=== PATIENT | male | born 1960 | race Caucasian/White ===

== ENCOUNTER 2020-05-23 10:26 | Outpatient (REF) | payer BC, SELFPAY ==
[2020-05-23 12:05] LABS: PSA,Total (Free>4and<10) 4.19 ng/mL (0.00-4.00)
[2020-05-24 12:12] LABS: Free Prostate Spec Ag 0.3 ng/mL; Percent Free Prostate Spec Ag 12 % (calc) (>25)
[2020-05-27 11:22] LABS: Prostate Specific Ag Total 2.5 ng/mL (< OR = 4.0)
== END 2020-05-23 10:27 | disposition home or self-care (01) ==
LOC: HO.LAB 10:26
PROVIDERS: PCP Family Medicine; Visit Provider Urology
DX: R97.20 Elevated prostate specific antigen [PSA] (principal); Z80.42 Family history of malignant neoplasm of prostate
CPT/HCPCS: 36415; 84153; 84154

== ENCOUNTER → 2020-05-26 08:26 | Outpatient (BNVA) | payer BC, SELFPAY | PROVIDERS: PCP Family Medicine; Referring Provider Family Medicine; Visit Provider Urology | DX: Z76.89 Persons encountering health services in other specified circumstances (principal) ==

== ENCOUNTER 2020-08-29 11:35 | Outpatient (REF) | payer BC, SELFPAY ==
[2020-08-29 13:18] LABS: PSA,Total (Free>4and<10) 5.55 ng/mL (0.00-4.00)
[2020-08-30 11:12] LABS: Free Prostate Spec Ag 0.5 ng/mL; Percent Free Prostate Spec Ag 14 % (calc) (>25); Prostate Specific Ag Total 3.5 ng/mL (< OR = 4.0)
== END 2020-08-29 11:36 | disposition home or self-care (01) ==
LOC: HO.LAB 11:35
PROVIDERS: PCP Family Medicine; Visit Provider Urology
DX: N13.8 Other obstructive and reflux uropathy (principal); N40.1 Benign prostatic hyperplasia with lower urinary tract symptoms; R97.20 Elevated prostate specific antigen [PSA]; Z12.5 Encounter for screening for malignant neoplasm of prostate
CPT/HCPCS: 36415; 84153; 84154

== ENCOUNTER → 2020-09-07 12:38 | Outpatient (BNVA) | payer BC, SELFPAY | PROVIDERS: PCP Family Medicine; Visit Provider Urology | DX: N52.9 Male erectile dysfunction, unspecified (principal); R97.20 Elevated prostate specific antigen [PSA] | CPT/HCPCS: 81002 ==

== ENCOUNTER 2021-01-07 08:08 | Outpatient (REF) | payer BC, SELFPAY ==
[2021-01-07 10:28] LABS: PSA,Total (Free>4and<10) 5.97 ng/mL (0.00-4.00)
[2021-01-09 13:02] LABS: Free Prostate Spec Ag 0.3 ng/mL; Percent Free Prostate Spec Ag 9 % (calc) (>25); Prostate Specific Ag Total 3.5 ng/mL (< OR = 4.0)
== END 2021-01-07 08:09 | disposition home or self-care (01) ==
LOC: HO.LAB 08:08
PROVIDERS: PCP Family Medicine; Visit Provider Urology
DX: N40.1 Benign prostatic hyperplasia with lower urinary tract symptoms (principal); N13.8 Other obstructive and reflux uropathy; R97.20 Elevated prostate specific antigen [PSA]
CPT/HCPCS: 36415; 84153; 84154

== ENCOUNTER → 2021-03-07 08:25 | Outpatient (BNVA) | payer BC, SELFPAY | PROVIDERS: PCP Family Medicine; Visit Provider Urology ==

== ENCOUNTER 2021-07-06 09:22 | Outpatient (REF) | payer BC, SELFPAY ==
--- NOTE | ~2021-07-06 | XR_ITS ---
EXAMINATION: XR ANKLE, RIGHT CLINICAL INFORMATION: Pain. COMPARISON: Right ankle 04/13/2013. TECHNIQUE: AP, oblique and lateral views of the right ankle. FINDINGS: There is moderate lateral malleolar soft tissue swelling. No visible acute fracture, dislocation or subluxation seen. The ankle mortise and subtalar joints are normal. There is a small retrocalcaneal enthesophyte. XR/XR ankle RT min 3V IMPRESSION: Moderate lateral malleolar soft tissue swelling. No visible acute fracture or dislocation seen.
== END 2021-07-06 09:23 | disposition home or self-care (01) ==
LOC: HO.HOSX 09:22
PROVIDERS: PCP Family Medicine; Visit Provider Orthopaedic Surgery
DX: S86.019D Strain of unspecified Achilles tendon, subsequent encounter (principal); X58.XXXD Exposure to other specified factors, subsequent encounter
CPT/HCPCS: 73610

== ENCOUNTER 2021-07-14 10:20 | Outpatient (REF) | payer BC, SELFPAY ==
--- NOTE | ~2021-07-14 | MR_ITS ---
EXAMINATION: MRI ANKLE WITHOUT CONTRAST, RIGHT CLINICAL INFORMATION: Strain of the Achilles tendon. Patient reports history of complete rupture 8 years ago with subsequent surgery. Lump, pain, and swelling x3 weeks. No injury. COMPARISON: None TECHNIQUE: Multiplanar MR imaging was obtained through the right ankle without contrast on a 1.5 Kaley magnet. FINDINGS: ACHILLES TENDON: Numerous punctate foci of micrometallic susceptibility artifact at the superficial margin of the Achilles tendon along its mid substance are most consistent with prior surgery. The morphology of the tendon is abnormal with cystic expansion and convexity of the anterior margin. The Achilles measures up to 1.6 cm in diameter at its mid substance, centered 6 cm from the insertion. There is complex intraligamentous cystic exchange trouble shooter a distance of 5.5 cm involving up to 23% of the approximately one-quarter of the tendon cross-section. This cyst penetrates the superficial, posterior fibers of the Achilles tendon over an area measuring 1.3 x 0.5 cm with extension of cystic material into the more superficial soft tissue plane at the pre-Achilles bursa. Surrounding soft tissues are edematous. Aside from the region of cystic delamination, the Achilles tendon otherwise appears intact. OTHER TENDONS: There is a complex tear of the peroneus brevis extending from the level of the lateral malleolus through the anterior process of the calcaneus just distal to the peroneal tubercle. This tear measures roughly 4.5 cm in length and involves at least one-half the tendon cross-section. The peroneus longus is intact without significant tenosynovitis. Incidental note is made of a small peroneus quartus. Extensor tendons and medial flexor tendons are intact. LIGAMENTS: Anterior talofibular ligament is absent, most consistent with a chronic tear with resorption. There is slight thickening of the calcaneofibular ligament which suggests a prior sprain. No tears. Posterior talofibular ligament is intact. Osseous prominence at the anterior tibiofibular ligament attachments may correspond to a prior sprain. No appreciable tears of the distal tibiofibular ligaments. The deltoid ligament is intact. Normal spring ligament. BONE AND ARTICULAR CARTILAGE: Talocrural joint appears well preserved. Small marginal osteophytes are identified. No talar osteochondral injuries. Subtalar and Chopart joints are unremarkable. JOINT FLUID AND SOFT TISSUES: No joint effusions. Mild edema signal in the subcutaneous fat at the ankle, most pronounced posteriorly. As noted above, there is fluid in the pre-Achilles bursa extending from the substance of the tendon. PLANTAR FASCIA: Normal. SINUS TARSI AND TARSAL TUNNEL: Normal. MR/MR ankle RT wo con IMPRESSION: 1. Chronic findings of prior Achilles tendon surgery with cystic expansion and delamination of the tendon fibers as well as superficial penetration of the cystic change into the pre-Achilles bursa. This most likely corresponds to mucoid change related to tendinosis. Superimposed infection cannot be excluded, however. Consider aspiration of the superficial extratendinous portion of the fluid if there are clinical findings to indicate underlying inflammation/infection. 2. Complex tear of the peroneus brevis involving greater than one-half of the tendon cross-section. 3. 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 Prior calcaneofibular ligament sprain.
== END 2021-07-14 10:21 | disposition home or self-care (01) ==
LOC: HO.MRI 10:20
PROVIDERS: PCP Family Medicine; Visit Provider Orthopaedic Surgery
DX: S86.011A Strain of right Achilles tendon, initial encounter (principal)
CPT/HCPCS: 73721

== ENCOUNTER → 2021-07-27 08:26 | Outpatient (BNVA) | payer BC, SELFPAY | PROVIDERS: PCP Family Medicine; Visit Provider Orthopaedic Surgery ==

== ENCOUNTER 2021-08-25 08:48 | Outpatient (REF) | payer BC, SELFPAY ==
[2021-08-25 10:24] LABS: PSA,Total (Free>4and<10) 3.51 ng/mL (0.00-4.00)
== END 2021-08-25 08:49 | disposition home or self-care (01) ==
LOC: HO.LAB 08:48
PROVIDERS: PCP Family Medicine; Visit Provider Urology
DX: Z12.5 Encounter for screening for malignant neoplasm of prostate (principal); N40.1 Benign prostatic hyperplasia with lower urinary tract symptoms; N13.8 Other obstructive and reflux uropathy
CPT/HCPCS: 36415; 84153

== ENCOUNTER → 2021-08-31 08:19 | Outpatient (BNVA) | payer BC, SELFPAY | PROVIDERS: PCP Family Medicine; Visit Provider Urology | DX: Z13.89 Encounter for screening for other disorder (principal) ==

== ENCOUNTER 2022-03-07 10:17 | Outpatient (REF) | payer BC, SELFPAY ==
[2022-03-07 12:45] LABS: Prostate Specific Antigen 1.44 ng/mL (<0.05-4.0)
== END 2022-03-07 10:18 | disposition home or self-care (01) ==
LOC: HO.LAB 10:17
PROVIDERS: PCP Family Medicine; Visit Provider Urology
DX: Z12.5 Encounter for screening for malignant neoplasm of prostate (principal); N40.1 Benign prostatic hyperplasia with lower urinary tract symptoms; N13.8 Other obstructive and reflux uropathy
CPT/HCPCS: 36415; 84153

== ENCOUNTER 2023-03-26 08:25 | Outpatient (AMB) | payer BC, SELFPAY ==
--- NOTE | 2023-03-26 08:31 | MHC.OFFVIS ---
Intake Intake Visit Reasons: 1Y PSA/PVR(set) Intake Note: Patient is Present for Follow Up Urology Medication: Tadalafil, Finasteride Antibiotic Allergies: None Blood Thinners: None PVR: 0ml Compliants: No current complaints patient does self cath Allergies meperidine [From DEMEROL] Adverse Reaction (Unknown, Verified 03/26/23 08:32) HYPOTENSION HPI HPI Comments History of Present Illness Details Dillon is a pleasant male. He is a patient of Dr Khan. He is seen for the following urologic conditions - Elevated PSA - erectile dysfunction - neurogenic bladder Continue stability with finasteride every other day PSA stabilized 1.6 Continues with b.i.d. catheterizing Continued responsiveness to tadalafil for ED Elevated PSA Here for current review Long running elevated PSA - highly variable between 1.5 and 5.5 Prior biopsy negative Family history prostate cancer PSA - 04/07 11.5, 11/06 1.5, 09/07 5.6, 02/07 3.5/5.9, 09/08 3.5, 03/10 1.4, 03/11 1.6 Erectile dysfunction Good response to tadalafil 20 mg as needed Lower urinary tract symptoms Has been on alpha-duyen Uses self catheterization for retention - BID Occasional bladder activity PFSH Medical History Erectile dysfunction BPH with obstruction/lower urinary tract symptoms Urine retention Hypotonic bladder Family history of prostate cancer Elevated PSA Surgical History History of surgery Social History Current occupational status: employed Current occupation: Self Employed - [employer] Review of Systems Const Denies chills and Denies fever(s) Card Reports no additional complaints and Denies syncope Resp Denies cough GI Denies abdominal pain and Denies heartburn Reports as per HPI and Denies change in libido Neuro Denies syncope Psych Denies change in libido Endo Denies change in libido Physical Exam Const General: cooperative, healthy appearing, comfortable and no acute distress Orientation/consciousness: patient oriented x3 HEENT Face and sinus: Yes normal facial exam Mouth: moist mucous membranes Neck Neck: Yes normal visual inspection, Yes full ROM and Yes trachea midline Chest Chest palpation & inspection: normal inspection of the chest Resp Effort & Inspection: normal respiratory effort, able to speak in complete sentences and no respiratory distress GI Inspection: Yes normal to inspection Back/Spine/Pelvis Cervical Spine: normal cervical lordosis Thoracic/Lumbar Spine: thoracic and lumbar spine normal to inspection Skin General skin exam: no rashes or lesions noted Neuro General: patient oriented x3, gait normal, tone normal and moves all extremities Extrem General: Yes normal to inspection and Yes capillary refill normal Office Procedures Post Void Residual Post Residual Void Post Void Residual (PVR): 0 [id number] Void Residual by ultrasound Assessment & Plan Assessment & Plan (1) Erectile dysfunction: Code(s): N52.9 - Male erectile dysfunction, unspecified Qualifiers: Erectile dysfunction type: unspecified Qualified Code(s): N52.9 - Male erectile dysfunction, unspecified (2) BPH with obstruction/lower urinary tract symptoms: Code(s): N40.1 - Benign prostatic hyperplasia with lower urinary tract symptoms; N13.8 - Other obstructive and reflux uropathy (3) Hypotonic bladder: Code(s): N31.2 - Flaccid neuropathic bladder, not elsewhere classified Plan Six month follow-up PSA Orders: Orders AMB Post Void Residual by ultrasound Today R33.9 - Retention of urine, unspecified Prostate Specific Antigen 6 Months R97.20 - Elevated prostate specific antigen [PSA] Patient Instructions: Imaging studies, laboratory and physical exam results were discussed and reviewed in detail. No major barriers to patient understanding were identified. An opportunity to ask questions regarding the treatment plan was provided. All questions were answered. The patient expressed understanding and agreement with the above treatment plan. The patient is aware they should contact our office by phone for worsening of their current condition or the appearance of new urologic symptoms. Compliance is encouraged with any medications and followup testing that is ordered. It is a privilege to participate in the urologic care of your patient. If you have any questions or concerns regarding treatment for the above conditions, or other urologic issues, please do not hesitate to contact me. The office telephone contact is [phone]. This note is constructed using voice recognition software. While every effort has been made to ensure accuracy jig boring machine set up operator errors may have been included. Yours sincerely, Dr Jitendra Gipson MD, [facility] - Urology Providers of Expert, Compassionate Care for the Genitourinary System Coding Level of Care Code Est Pt Level 4 (03961) Diagnoses Erectile dysfunction, unspecified erectile dysfunction type N52.9 Erectile dysfunction type: unspecified BPH with obstruction/lower urinary tract symptoms N40.1; N13.8 Hypotonic bladder N31.2 CPT Codes Post Residual Void - PVR CPT Code: [id number] Void Residual by ultrasound ([id number])
== END 2023-03-26 09:20 | disposition home or self-care (01) ==
PROVIDERS: Visit Provider Urology
DX: N40.1 Benign prostatic hyperplasia with lower urinary tract symptoms (principal); N31.2 Flaccid neuropathic bladder, not elsewhere classified; N13.8 Other obstructive and reflux uropathy; N52.9 Male erectile dysfunction, unspecified
CPT/HCPCS: 99214

== ENCOUNTER → 2023-03-26 08:25 | Outpatient (BNVA) | payer BC, SELFPAY | PROVIDERS: Visit Provider Urology | DX: N40.1 Benign prostatic hyperplasia with lower urinary tract symptoms (principal); N13.8 Other obstructive and reflux uropathy; N31.2 Flaccid neuropathic bladder, not elsewhere classified; N52.9 Male erectile dysfunction, unspecified; Z80.42 Family history of malignant neoplasm of prostate | CPT/HCPCS: 51798 ==

== ENCOUNTER 2023-09-17 10:56 | Outpatient (REF) | payer BC, SELFPAY ==
[2023-09-17 13:07] LABS: Prostate Specific Antigen 1.95 ng/mL (<0.05-4.0)
== END 2023-09-17 10:57 | disposition home or self-care (01) ==
LOC: HO.LAB 10:56
PROVIDERS: Visit Provider Urology
DX: N40.1 Benign prostatic hyperplasia with lower urinary tract symptoms (principal); N13.8 Other obstructive and reflux uropathy; Z12.5 Encounter for screening for malignant neoplasm of prostate
CPT/HCPCS: 36415; 84153

== ENCOUNTER 2023-09-24 08:36 | Outpatient (AMB) | payer BC, SELFPAY ==
--- NOTE | 2023-09-24 08:37 | MHC.OFFVIS ---
Intake Visit Reasons: 6M PSA(set) VM to confirm Intake Note: Patient is Present for Telephone Follow Up For Urology Med: Finasteride, Tadalafil Antibiotic Allergy:None Blood Thinner: None Allergies meperidine [From DEMEROL] Adverse Reaction (Unknown, Verified 09/24/23 08:37) HYPOTENSION Medication List - Last Reconciled 09/24/23 by Jitendra Gipson MD amlodipine 10 mg PO DAILY atenolol 25 mg PO DAILY chlorthalidone 25 mg PO DAILY finasteride 5 mg PO DAILY 90 days levothyroxine 75 mcg PO DAILY levothyroxine 88 mcg PO DAILY lisinopril 20 mg PO BID tadalafil 20 mg PO DAILY PRN 90 days timolol maleate 0.5% 0 drps ophthalmic (eye) HPI Comments Details: Dillon is a pleasant male. He is a patient of Dr Khan. He is seen for the following urologic conditions - Elevated PSA - erectile dysfunction - neurogenic bladder - ongoing care for chronic complex condition Telemedicine Evaluation 15 min Consultation [employer] Alonso Video Continue stability with finasteride every other day = slight PSA rise but was expected PSA remains under 2 Continues with b.i.d. catheterizing - expected to continue for the foreseeable future Drains 20 oz. Encouraged to catheterize 3 times per day. No evidence of UTI Continued responsiveness to tadalafil for ED Elevated PSA Here for current review Long running elevated PSA - highly variable between 1.5 and 5.5 Prior biopsy negative Family history prostate cancer PSA - 04/07 11.5, 11/06 1.5, 09/07 5.6, 02/07 3.5/5.9, 09/08 3.5, 03/10 1.4, 03/11 1.6, 09/10 1.9 Erectile dysfunction Good response to tadalafil 20 mg as needed Lower urinary tract symptoms Has been on alpha-duyen Uses self catheterization for retention - BID Occasional bladder activity PFSH Medical History Erectile dysfunction BPH with obstruction/lower urinary tract symptoms Urine retention Hypotonic bladder Family history of prostate cancer Elevated PSA Surgical History History of surgery Social History Current occupational status: employed 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 Review of Systems Const All systems reviewed & are unremarkable except as noted in HPI and below Reports no additional complaints Resp Reports no additional complaints GI Reports no additional complaints Reports as per HPI Musc Reports no additional complaints Physical Exam Telemedicine evaluation Appropriate responses Regular breathing rate and rhythm HEENT Head: Yes normal to inspection Ears: hearing grossly normal bilaterally Eyes General: appearance normal, both eyes and all related structures Neck Neck: Yes normal visual inspection Chest Chest palpation & inspection: normal inspection of the chest Resp Effort & Inspection: normal respiratory effort and able to speak in complete sentences Telehealth Telehealth Telehealth Platform: [employer] Location of provider rendering services: practice address Location of patient: address on file Patient Identification confirmed using: Name, : Yes Telehealth method: video Patient verbally consented to treatment: Yes Patient verbally consented to billing insurance company: Yes Patient informed of any privacy concerns related to visit: Yes Minutes spent on Phone/Video with Pt.: 15 Assessment & Plan Assessment & Plan (1) Erectile dysfunction: Code(s): N52.9 - Male erectile dysfunction, unspecified Category: Medical Qualifiers: Erectile dysfunction type: unspecified Qualified Code(s): N52.9 - Male erectile dysfunction, unspecified (2) BPH with obstruction/lower urinary tract symptoms: Code(s): N40.1 - Benign prostatic hyperplasia with lower urinary tract symptoms; N13.8 - Other obstructive and reflux uropathy Category: Medical (3) Hypotonic bladder: Code(s): 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 No major barriers to patient understanding were identified. An opportunity to ask questions regarding the treatment plan was provided. All questions were answered. The patient expressed understanding and agreement with the above treatment plan. The patient is aware they should contact our office by phone for worsening of their current condition or the appearance of new urologic symptoms. Compliance is encouraged with any medications and followup testing that is ordered. It is a privilege to participate in the urologic care of your patient. If you have any questions or concerns regarding treatment for the above conditions, or other urologic issues, please do not hesitate to contact me. The office telephone contact is [phone]. This note is constructed using voice recognition software. While every effort has been made to ensure accuracy medtronics technician errors may have been included. Yours sincerely, Dr Jitendra Gipson MD, [facility] - Urology Providers of Expert, Compassionate Care for the Genitourinary System Coding Level of Care Code Tele Est Pt Level 4 (03247) Complex EM visit Add On [id number] Diagnoses Erectile dysfunction, unspecified erectile dysfunction type N52.9 Erectile dysfunction type: unspecified BPH with obstruction/lower urinary tract symptoms N40.1; N13.8 Hypotonic bladder N31.2
== END 2023-09-24 09:31 | disposition home or self-care (01) ==
LOC: HO.HUSH 08:36
PROVIDERS: PCP Family Medicine; Visit Provider Urology
DX: N52.9 Male erectile dysfunction, unspecified (principal); N40.1 Benign prostatic hyperplasia with lower urinary tract symptoms; N13.8 Other obstructive and reflux uropathy; N31.2 Flaccid neuropathic bladder, not elsewhere classified
CPT/HCPCS: 99213; G2211

== ENCOUNTER → 2023-09-24 08:36 | Outpatient (BNVA) | payer BC, SELFPAY | PROVIDERS: PCP Family Medicine; Visit Provider Urology ==

== ENCOUNTER 2024-02-05 10:28 | Inpatient (IN) | payer BC, SELFPAY ==
--- NOTE | 2024-02-05 | ECG_ITS ---
Test Reason : QTC Blood Pressure : / mmHG Vent. Rate : 083 BPM Atrial Rate : 083 BPM P-R Int : 178 ms QRS Dur : 098 ms QT Int : 400 ms P-R-T Axes : 058 040 041 degrees QTc Int : 470 ms Normal sinus rhythm Normal ECG When compared with ECG of 15-AUG-2019 17:34, Nonspecific T wave abnormality has replaced inverted T waves in Inferior leads QT has lengthened Referred By: Sol Cunningham Electronically Signed By:DAMIR GÓMEZ
--- NOTE | ~2024-02-05 | CT_ITS ---
EXAMINATION: CT HEAD WITHOUT CONTRAST CLINICAL INFORMATION: 64-year-old male with hallucinations COMPARISON: December 29, 2016 TECHNIQUE: Contiguous axial imaging was performed from the skull base to vertex without intravenous administration of contrast. This CT examination was performed using dose optimization techniques as appropriate, variously including the following: *Automated exposure control *Adjustment of mA and/or kV according to patient size (this includes techniques or standardized protocols for targeted exams where dose is matched to indication/reason for exam; i.e. extremities or head) *Use of iterative reconstruction technique DLP: 765 mGy-cm FINDINGS: There is no evidence of intracranial hemorrhage, masses, mass effect, midline shift. Ventricles, sulci and cisterns are appropriate for age. No extra-axial fluid collection. Corticomedullary differentiation. Osseous structures unremarkable. Partially visualized paranasal sinuses demonstrate mucous retention cysts in maxillary sinuses and mastoids are well-aerated. CT/CT head/brain wo IV con IMPRESSION: No acute intracranial pathology. Chronic sinus disease Electronically signed by: Bashir Bee MD 02/05/2024 11:51 AM EDT
--- NOTE | ~2024-02-05 | US_ITS ---
EXAMINATION: US TRIPLEX LOWER EXTREMITY, RIGHT CLINICAL INFORMATION: Pain, swelling COMPARISON: None available. TECHNIQUE: Color-flow triplex imaging with spectral analysis and compression Doppler were performed on the right lower extremity. FINDINGS: Respiratory variation, normal compression and augmented flow are noted throughout the right lower extremity. The visualized common femoral vein, superficial femoral vein, profunda femoral vein, popliteal vein and midcalf peroneal and posterior tibial venous segments show no evidence of deep venous thrombosis. There is no Yarbrough's cyst. US/US venous duplex LE RT IMPRESSION: No evidence of deep venous thrombosis involving the right lower extremity. Electronically signed by: Florentin Foster DO 02/06/2024 10:59 AM EDT
[2024-02-05 10:30] VITALS: BP 164/87; PULSE 76; RESP 20; TEMP 36.5; O2SAT 97; BMI 28.2
[2024-02-05 10:42] VITALS: BP 164/87; PULSE 76; RESP 20; TEMP 36.5; O2SAT 97
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
--- NOTE | 2024-02-05 11:12 | PC.NURSE ---
changed pt into [facility]. pts requesting to take pts belongings
[2024-02-05 11:20] LABS: MANUAL DIFF FLAG NO
[2024-02-05 11:24] LABS: Basophils Absolute Auto 0.1 X10*3/uL (0.0-0.2); Basophils Percent Auto 0.5 % (0-2); Eosinophils Absolute Auto 0.1 X10*3/uL (0.0-0.4); Eosinophils Percent Auto 0.5 % (0-4); Hematocrit 43.7 % (42.0-52.0); Hemoglobin 14.9 g/dl (14.0-18.0); Imm Gran Abs Auto 0.08 X10*3/uL (0.00-0.03); Imm Gran Pct Auto 0.5 % (0.0-0.4); Lymphocytes Absolute Auto 1.6 X10*3/uL (1.2-4.9); Lymphocytes Percent Auto 9.5 % (20-40); Mean Corpuscular HGB Conc 34.1 g/dl (31.0-36.0); Mean Corpuscular Hemoglobin 30.9 pg (27.0-33.0); Mean Corpuscular Volume 90.7 fL (80.0-98.0); Mean Platelet Volume 8.9 fL (9.4-12.4); Monocytes Absolute Auto 1.4 X10*3/uL (0.1-1.2); Monocytes Percent Auto 8.3 % (2-11); Neutrophils Absolute Auto 13.5 x10*3/uL (2.0-8.3); Neutrophils Percent Auto 80.7 % (45-73); Platelet Count 319 X10*3/uL (160-400); Red Blood Count 4.82 X10*6/uL (4.60-5.80); Red Cell Distribution Width 12.4 % (11.0-16.0); White Blood Count 16.7 X10*3/uL (4.8-10.8)
[2024-02-05 11:45] LABS: Alanine Aminotransferase 31 U/L (0-40); Albumin Level 4.6 g/dL (3.5-5.0); Alkaline Phosphatase 90 U/L (39-117); Anion Gap 9 (12-20); Aspartate Amino Transferase 24 U/L (5-37); Bilirubin Total 0.5 mg/dL (0.0-1.0); Blood Urea Nitrogen 27 mg/dL (9-16); Carbon Dioxide 28 mmol/L (22-29); Chloride 108 mmol/L (96-108); Creatinine Clr Calc Pharmacy 81.7; Estimated Glomerular Filt Rate > 60; Ethanol < 10 mg/dL; Glucose Random 119 mg/dL (60-115); Sodium 141 mmol/L (135-145)
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
--- NOTE | 2024-02-05 13:45 | PC.NURSE ---
Patient straight cath himself without complications. Patient states he does this at home 2-3 daily d/t neurogenic bladder.
[2024-02-05] MEDS: risperiDONE 1 MG TABLET PO ×2 (14:05→20:03)
[2024-02-05] MEDS: clonazePAM 1 MG TABLET PO (14:05)
[2024-02-05 14:06] LABS: Appearance Urine Clear; Color Urine Yellow; Glucose Urine UA Negative (Negative); Leukocyte Esterase Urine Trace (Negative); Nitrite Urine Negative (Negative); PH 5.5 (5.0-9.0); Specific Gravity - Urine 1.025 (1.005-1.025); UMIC TRIGGER UACC YES; Urine Blood Negative (Negative); Urine Ketones Negative (Negative); Urine Protein Negative (Neg-Trace)
[2024-02-05 14:11] LABS: Bacteria Urine None Seen (None Seen); Hyaline Casts Urine 0-2 /LPF (0-2); RBC Urine 0-2 /HPF (0-2); Squamous Epithelial Cell Urine 0-2 /HPF (0-2); UACC Culture Trigger YES
--- NOTE | 2024-02-05 14:12 | PC.NURSE ---
Patient calm cooperative sitting with at bedside eating lunch. pt denies any complaints at this time. patient has spoken with care team already. pendding dispo
[2024-02-05 14:16] LABS: Amphetamine Screen Urine Not Detected (Not Detect); Barbiturates, Urine Not Detected (Not Detect); Benzodiazepines Screen Urine Not Detected (Not Detect); Buprenorphine Scr Not Detected (Not Detect); Cannabinoid Screen Urine Not Detected (Not Detect); Cocaine Screen Urine Not Detected (Not Detect); Fentanyl, urine Not Detected (Not Detect); Methadone Screen, Urine Not Detected (Not Detect); Opiate Screen Urine Not Detected (Not Detect); Oxycodone Screen Urine Not Detected (Not Detect); Phencyclidine Screen Urine Not Detected (Not Detect)
--- NOTE | 2024-02-05 16:43 | PC.NURSE ---
Patient transfer into POD unit. Management ok'ed patient in unit with straight cath orders. patient aaxo3 and is able to stand with steady gait and straight cath self without issues. MARYSE sloan given report.
--- NOTE | 2024-02-05 16:44 | PC.NURSE ---
all belongings sent home with pts
[2024-02-05] MEDS: clonazePAM 0.5 MG TABLET PO (20:03)
[2024-02-05 21:55] VITALS: BP 175/92; PULSE 83; RESP 16; TEMP 37.3; O2SAT 97
[2024-02-06] MEDS: Levothyroxine Sodium 88 MCG TABLET PO (06:03)
[2024-02-06 08:24] VITALS: BP 180/100; PULSE 94; RESP 18; TEMP 37; O2SAT 96
--- NOTE | 2024-02-06 08:26 | PC.NURSE ---
Pt reporting pain right right leg,11/26, reports it has been worsening for last 4 days. Right lower leg is red, warm to touch and swollen. Bruising noted to right knee. Provider alerted. Pt reports he doesn't know how it happened.
[2024-02-06] MEDS: risperiDONE 1 MG TABLET PO ×2 (08:28→22:56)
[2024-02-06 08:29] VITALS: BP 180/100
[2024-02-06] MEDS: amLODIPine Besylate 10 MG TABLET PO (08:29)
[2024-02-06] MEDS: clonazePAM 0.5 MG TABLET PO ×2 (08:29→22:56)
[2024-02-06] MEDS: Valsartan 160 MG TABLET PO (08:29)
[2024-02-06 08:35] LABS: MANUAL DIFF FLAG NO
[2024-02-06 08:36] LABS: Basophils Percent Auto 0.2 % (0-2); Eosinophils Absolute Auto 0.1 X10*3/uL (0.0-0.4); Eosinophils Percent Auto 0.4 % (0-4); Hematocrit 43.6 % (42.0-52.0); Imm Gran Abs Auto 0.05 X10*3/uL (0.00-0.03); Imm Gran Pct Auto 0.4 % (0.0-0.4); Lymphocytes Absolute Auto 1.7 X10*3/uL (1.2-4.9); Lymphocytes Percent Auto 12.7 % (20-40); Mean Corpuscular HGB Conc 34.4 g/dl (31.0-36.0); Mean Corpuscular Hemoglobin 31.2 pg (27.0-33.0); Mean Corpuscular Volume 90.6 fL (80.0-98.0); Mean Platelet Volume 8.9 fL (9.4-12.4); Monocytes Absolute Auto 0.8 X10*3/uL (0.1-1.2); Monocytes Percent Auto 6.1 % (2-11); Neutrophils Absolute Auto 10.8 x10*3/uL (2.0-8.3); Neutrophils Percent Auto 80.2 % (45-73); Platelet Count 305 X10*3/uL (160-400); Red Blood Count 4.81 X10*6/uL (4.60-5.80); Red Cell Distribution Width 12.3 % (11.0-16.0); White Blood Count 13.5 X10*3/uL (4.8-10.8)
[2024-02-06] MEDS: Finasteride 5 MG TABLET PO (09:14)
[2024-02-06] MEDS: Colchicine 0.6 MG TABLET PO (09:14)
--- NOTE | 2024-02-06 09:14 | PHA.MEDREC ---
Pharmacy Consult ? Medication Reconciliation Pharmacy has reviewed the medication reconciliation done by nursing. Also went to talk to patient, he confirmed he's no longer taking lisinopril 20 mg qd.
--- NOTE | 2024-02-06 09:19 | PC.NURSE ---
pt medicated per provider order. currently waiting for pharmacy to verify abx prior to medication administration. also waiting for eye drops to be delivered from pharmacy at this time. will administer when able. pt requesting ice pack d/t pain in right shoulder. ice pack applied. pt otherwise resting in room in no apparent distress. plan of care ongoing.
[2024-02-06] MEDS: Doxycycline Monohydrate 100 MG CAPSULE PO ×2 (10:03→22:55)
[2024-02-06] MEDS: cephALEXin 500 MG CAPSULE PO ×4 (10:03→22:56)
--- NOTE | 2024-02-06 10:22 | PC.NURSE ---
pt being transported to have ultrasound completed at this time. accompanied by tech and security.
[2024-02-06] MEDS: timoloL maleate 0.5 % Oph Sol 5 ML DRBTL 1 DROP EYE-BOTH (10:44)
--- NOTE | 2024-02-06 13:43 | PC.NURSE ---
report given to MARYSE Hernández at this time.
[2024-02-06 13:47] VITALS: BP 138/88; PULSE 78; RESP 16; TEMP 36.2; O2SAT 96
[2024-02-06 15:00] VITALS: BP 168/87; PULSE 82; RESP 19; TEMP 36.5; O2SAT 95
[2024-02-06 15:24] VITALS: BMI 27.9
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
[2024-02-06] MEDS: Acetaminophen 325 MG TABLET 650 MG PO (17:38)
[2024-02-06 20:00] VITALS: BP 160/81; RESP 16; TEMP 36.6; O2SAT 96
[2024-02-06 23:49] VITALS: PULSE 72; O2SAT 97
[2024-02-07] MEDS: Levothyroxine Sodium 88 MCG TABLET PO (06:41)
[2024-02-07 08:22] LABS: Estimated Average Glucose 117 mg/dL; Hemoglobin A1C 141.9533 umol/L; Hemoglobin A1c % 5.7 % (<6.0); Total Hemoglobin (HGBA1C) 3648.2269 umol/L
[2024-02-07 08:36] LABS: Cholesterol 186 mg/dL (<200); HDL Cholesterol 69 mg/dL (>40); LDL Cholesterol Calculated 92 mg/dL (<100); Magnesium 2.1 mg/dL (1.6-2.6); Triglycerides 126 mg/dL (<150)
[2024-02-07] MEDS: amLODIPine Besylate 10 MG TABLET PO (08:40)
[2024-02-07] MEDS: cephALEXin 500 MG CAPSULE PO ×4 (08:40→20:29)
[2024-02-07] MEDS: Valsartan 160 MG TABLET PO (08:40)
[2024-02-07] MEDS: Colchicine 0.6 MG TABLET PO (08:41)
[2024-02-07] MEDS: risperiDONE 1 MG TABLET PO ×2 (08:41→20:29)
[2024-02-07] MEDS: clonazePAM 0.5 MG TABLET PO ×2 (08:41→20:29)
[2024-02-07] MEDS: Doxycycline Monohydrate 100 MG CAPSULE PO ×2 (08:41→20:28)
[2024-02-07] MEDS: Finasteride 5 MG TABLET PO (08:42)
[2024-02-07 08:53] VITALS: BP 157/87; PULSE 81; RESP 18; TEMP 36.8; O2SAT 97
[2024-02-07 08:54] LABS: Free T4 (Free Thyroxine) 1.18 ng/dL (0.71-1.85)
[2024-02-07 09:06] LABS: Folate 11.9 ng/mL (> or = 4.0); Vitamin B12 287 pg/mL (200-900)
[2024-02-07] MEDS: timoloL maleate 0.5 % Oph Sol 5 ML DRBTL 1 DROP EYE-BOTH (11:00)
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
[2024-02-07 19:41] VITALS: BP 165/86; PULSE 84; TEMP 36.6; O2SAT 97
[2024-02-07] MEDS: traZODone HCL 50 MG TABLET PO (20:28)
[2024-02-07 23:21] VITALS: PULSE 75; RESP 11; O2SAT 98
--- NOTE | 2024-02-07 23:59 | PC.NURSE ---
RT called for CPAP for patient. Patient on CPAP at this time with 1:1 present for safety.
[2024-02-08] MEDS: Levothyroxine Sodium 88 MCG TABLET PO (06:40)
[2024-02-08 08:28] VITALS: BP 165/84; PULSE 92; TEMP 36.9; O2SAT 97
[2024-02-08] MEDS: Escitalopram Oxalate 5 MG TABLET PO (09:02)
[2024-02-08] MEDS: Multivitamin TABLET 1 TAB PO (09:02)
[2024-02-08] MEDS: clonazePAM 0.5 MG TABLET PO ×2 (09:02→20:58)
[2024-02-08] MEDS: amLODIPine Besylate 10 MG TABLET PO (09:03)
[2024-02-08] MEDS: risperiDONE 1 MG TABLET PO ×2 (09:03→20:58)
[2024-02-08] MEDS: Valsartan 160 MG TABLET PO (09:03)
[2024-02-08] MEDS: Thiamine HCL 100 MG TABLET PO (09:03)
[2024-02-08] MEDS: cephALEXin 500 MG CAPSULE PO ×4 (09:03→20:58)
[2024-02-08] MEDS: Finasteride 5 MG TABLET PO (09:04)
[2024-02-08] MEDS: Colchicine 0.6 MG TABLET PO (09:04)
[2024-02-08] MEDS: Doxycycline Monohydrate 100 MG CAPSULE PO ×2 (09:08→20:58)
[2024-02-08 09:48] LABS: C Reactive Protein 2.75 mg/dL (< or = 0.50); Uric Acid 5.4 mg/dL (3.4-7.0)
--- NOTE | 2024-02-08 10:19 | P.PNPSI_ITS ---
Subjective Subjective Date of Service: 02/08/24 Reason For Visit: Psychosis Interim History: Met with patient; discussed with team pt says he thinks he's doing better and that things are heading in the right direction. NO complaints, no requests Mental Status Exam Mental Status Exam Patient Appearance: Fatigued and Appropriate Patient Orientation: Person, Place, Time and Situation Level of Consciousness: Alert Patient Behavior: Appropriate, Talkative, Cooperative, Anxious and Good Eye Contact Mood Description: Anxious and Apprehensive Affect Description: Anxious and Apprehensive Patient Cognition Impaired: No Ability to Follow Directions: Good Speech Pattern: Spontaneous Speech Memory Description: Episodic Impaired Hallucinations: None Delusions: Present Thought Process: Rumination Thought Content: positive for Circumstantial, positive for Perseveration and positive for Suicidal Ideation (denies) Depressive Symptoms: Increased Anxiety, Unhappiness, Increased Fatigue, Low Self Esteem and Difficulty Concentrating Judgement: Fair Diagnostics Vital Signs (24Hr): Vital Signs - 24 hr 02/07/24 19:41 02/07/24 23:21 02/08/24 08:28 Temperature 97.8 F 98.5 F Pulse Rate 84 92 Respiratory Rate 11 L Blood Pressure 165/86 H 165/84 H Pulse Oximetry 97 97 Oxygen Delivery Method Room Air BMI result Body Mass Index 27.9 Labs 02/06/24 08:30 02/05/24 11:16 Labs: Laboratory Results - last 48 hr 02/07/24 02/08/24 07:53 09:07 Estimat Average Glucose 117 Hemoglobin A1c % 5.7 Uric Acid 5.4 Magnesium 2.1 C-Reactive Protein 2.75 H Triglycerides 126 Cholesterol 186 LDL Cholesterol, Calc 92 HDL Cholesterol 69 Vitamin B12 287 Folate 11.9 TSH 2.50 Free T4 1.18 Imaging Radiology Impressions: ITS Impressions Head CT 02/05/24 10:50 IMPRESSION: No acute intracranial pathology. Chronic sinus disease Electronically signed by: Bashir Bee MD 02/05/2024 11:51 AM EDT RP Venous Duplex 02/06/24 10:23 IMPRESSION: No evidence of deep venous thrombosis involving the right lower extremity. Electronically signed by: Florentin Foster DO 02/06/2024 10:59 AM EDT RP Medications Medications Current Medications Acetaminophen (Acetaminophen 325 Mg Tablet) 650 mg PO Q6H PRN PRN Reason: Headache/Pain Mild Scale (1-3) Last Admin: 02/06/24 17:38 Dose: 650 mg Al Hydroxide/Mg Hydroxide (Magnesium Hydrox/Alum Hydrox 30 Ml Oral.Susp) 30 ml PO Q6H PRN PRN Reason: Heartburn/Nausea Amlodipine Besylate (Amlodipine Besylate 10 Mg Tablet) 10 mg PO DAILY [facility]; Protocol Last Admin: 02/08/24 09:03 Dose: 10 mg Cephalexin HCl (Cephalexin 500 Mg Capsule) 500 mg PO QID [facility] Stop: 02/13/24 08:59 Last Admin: 02/08/24 09:03 Dose: 500 mg Clonazepam (Clonazepam 0.5 Mg Tablet) 0.5 mg PO BID [facility] Last Admin: 02/08/24 09:02 Dose: 0.5 mg Colchicine (Colchicine 0.6 Mg Tablet) 0.6 mg PO DAILY [facility] Last Admin: 02/08/24 09:04 Dose: 0.6 mg Doxycycline Monohydrate (Doxycycline Monohydrate 100 Mg Capsule) 100 mg PO BID [facility] Stop: 02/12/24 21:01 Last Admin: 02/08/24 09:08 Dose: 100 mg Escitalopram Oxalate (Escitalopram Oxalate 5 Mg Tablet) 5 mg PO DAILY [facility] Last Admin: 02/08/24 09:02 Dose: 5 mg Finasteride (Finasteride 5 Mg Tablet) 5 mg PO DAILY [facility] Last Admin: 02/08/24 09:04 Dose: 5 mg Hydroxyzine HCl (Hydroxyzine Hcl 50 Mg Tablet) 50 mg PO TID PRN PRN Reason: Anxiety Levothyroxine Sodium (Levothyroxine Sodium 88 Mcg Tablet) 88 mcg PO DAILY@0630 [facility] Last Admin: 02/08/24 06:40 Dose: 88 mcg Magnesium Hydroxide (Milk Of Magnesia 30 Ml Oral.Susp) 30 ml PO DAILY PRN PRN Reason: Constipation Multivitamins/Vitamin C (Multivitamin Tablet) 1 tab PO DAILY [facility] Last Admin: 02/08/24 09:02 Dose: 1 tab Nicotine (Nicotine 21 Mg Patch.Td24) 21 mg TRANSDERMA DAILY PRN PRN Reason: nicotine cravings Nicotine Polacrilex (Nicotine Polacrilex 2 Mg Gum) 4 mg BUCCAL Q2H PRN PRN Reason: Nicotine Cravings Patient Owned ( Febuxostat 40 Mg Tablet) 40 mg PO DAILY [facility] Last Admin: 02/08/24 09:04 Dose: 40 mg Risperidone (Risperidone 1 Mg Tablet) 1 mg PO BID [facility] Last Admin: 02/08/24 09:03 Dose: 1 mg Thiamine HCl (Thiamine Hcl 100 Mg Tablet) 100 mg PO DAILY [facility] Last Admin: 02/08/24 09:03 Dose: 100 mg Trazodone HCl (Trazodone Hcl 50 Mg Tablet) 50 mg PO BEDTIME MRX1 PRN PRN Reason: Insomnia Last Admin: 02/07/24 20:28 Dose: 50 mg Valsartan (Valsartan 160 Mg Tablet) 160 mg PO DAILY [facility]; Protocol Last Admin: 02/08/24 09:03 Dose: 160 mg Allergies Allergies Allergy/AdvReac Type Severity Reaction Status Date / Time meperidine [From DEMEROL] AdvReac Unknown HYPOTENSION Verified 02/05/24 10:42 allopurinol AdvReac Rash Verified 02/05/24 10:42 Assessment & Plan Assessment & Plan (1) Major depression with psychotic features: Status: Acute Code(s): F32.3 - Major depressive disorder, single episode, severe with psychotic features Plan Major Depression with Psychotic Features. hospital course: 02/07 continue current tx plan Plan: Collateral contacts Continue Risperdal, Klonopin Lexapro 5 mg daily Thiamine 100 mg daily (B12 287) Uric Acid, ESR, CRP Patient educated on: diagnosis Informed Consent: understands and further education needed Reason for continued inpatient stay Substantial Risk for: rapid decompensation Time Spent With Patient Time: Total time managing care of this patient today ____ minutes.
[2024-02-08 10:29] LABS: Erythrocyte Sedimentation Rate 31 MM/HR (0-15)
--- NOTE | 2024-02-08 13:18 | PM.EVENT ---
Event Note Date of Service: 02/08/24 Event Note: Patient is a 64-year-old male with a PMH significant for HTN, BPH, hypothyroidism, and hx of gout who was admitted to [facility] psychiatry unit for auditory hallucinations and delusions. Hospitalist consult for lower right extremity swelling, redness, and pain concerning for gout. Patient initially developed right leg swelling and erythema on 02/05 while in the ED awaiting psych placement. Venous duplex ultrasound negative for DVT. Patient was then started on doxycycline and cephalexin for cellulitis. Patient seen and evaluated in his room where he is currently wearing Michael stockings bilaterally for edema. States continues to feel pain in lower right extremity that has localized to anterior-lateral aspect of mid vásquez. States erythema has improved since starting antibiotics. Denies any calf pain. No fever or chills. Reports previous gout flares have occurred in his left great toe and right metatarsals. Has had intermittent, chronic lower extremity edema and been on diuretics in the past, though unclear when last prescription was. Lab work shows uric acid WNL. Physical exam reveals erythema, warmth, and swelling centered around mid vásquez. 2+ pitting edema on right lower extremity, 1+ pitting edema on left lower extremity. No pain, erythema, or swelling of bright knee or ankle. ROM preserved of right ankle and knee. No concern for acute gout flare. Patient should continue doxycycline and cephalexin for cellulitis. Continue colchicine and febuxostat for gout prevention. Continue 10 stockings. For lower leg edema, will prescribe Lasix 20 mg p.o. daily x5 days. Continue Michael stockings, encourage ambulation. Should follow up outpatient with PCP and possibly vascular for evaluation of possible venous insufficiency. Time Spent With Patient Time: Total time managing care of this patient today ____ minutes.
[2024-02-08 13:57] VITALS: BP 151/80
[2024-02-08] MEDS: Furosemide 20 MG TABLET PO (13:57)
[2024-02-08 20:00] VITALS: BP 164/82; PULSE 83; TEMP 36.3; O2SAT 96
[2024-02-08] MEDS: traZODone HCL 50 MG TABLET PO (20:58)
--- NOTE | 2024-02-09 00:14 | PC.NURSE ---
Patient ARMANI'S removed at HS. Patient utilizing CPAP with 1:1 for safety.
[2024-02-09] MEDS: Levothyroxine Sodium 88 MCG TABLET PO (06:22)
[2024-02-09 08:00] VITALS: BP 135/72; PULSE 82; TEMP 36.9; O2SAT 96
--- NOTE | 2024-02-09 08:19 | P.PNPSI_ITS ---
Subjective Subjective Date of Service: 02/09/24 Reason For Visit: Psychosis Interim History: Met with patient; discussed with team Patient reports that he thinks he is doing better; he asks again if there is anything else he should be doing to demonstrate this. He remains slowed but in good behavioral and impulse control. Patient reports sleeping well,; taking medications. Elevated sed rate and C-reactive protein; WBC WNL Mental Status Exam Mental Status Exam Patient Appearance: Fatigued and Appropriate Patient Orientation: Person, Place, Time and Situation Level of Consciousness: Alert Patient Behavior: Appropriate, Cooperative, Anxious and Good Eye Contact Mood Description: Anxious and Apprehensive Affect Description: Anxious and Apprehensive Patient Cognition Impaired: No Ability to Follow Directions: Good Speech Pattern: Spontaneous Speech Memory Description: Episodic Impaired Hallucinations: None Delusions: Present Thought Process: Rumination Thought Content: positive for Circumstantial, positive for Perseveration and positive for Suicidal Ideation (denies) Depressive Symptoms: Increased Anxiety, Unhappiness, Increased Fatigue, Low Self Esteem and Difficulty Concentrating Judgement: Fair Diagnostics Vital Signs (24Hr): Vital Signs - 24 hr 02/08/24 08:28 02/08/24 13:57 02/08/24 20:00 Temperature 98.5 F 97.3 F Pulse Rate 92 83 Blood Pressure 165/84 H 151/80 H 164/82 H Pulse Oximetry 97 96 Oxygen Delivery Method Room Air Room Air BMI result Body Mass Index 27.9 Labs 02/06/24 08:30 02/05/24 11:16 Labs: Laboratory Results - last 48 hr 02/07/24 02/08/24 07:53 09:07 ESR 31 H Estimat Average Glucose 117 Hemoglobin A1c % 5.7 Uric Acid 5.4 Magnesium 2.1 C-Reactive Protein 2.75 H Triglycerides 126 Cholesterol 186 LDL Cholesterol, Calc 92 HDL Cholesterol 69 Vitamin B12 287 Folate 11.9 TSH 2.50 Free T4 1.18 Imaging Radiology Impressions: ITS Impressions Head CT 02/05/24 10:50 IMPRESSION: No acute intracranial pathology. Chronic sinus disease Electronically signed by: Bashir Bee MD 02/05/2024 11:51 AM EDT Venous Duplex 02/06/24 10:23 IMPRESSION: No evidence of deep venous thrombosis involving the right lower extremity. Electronically signed by: Florentin Foster DO 02/06/2024 10:59 AM EDT Medications Medications Current Medications Acetaminophen (Acetaminophen 325 Mg Tablet) 650 mg PO Q6H PRN PRN Reason: Headache/Pain Mild Scale (1-3) Last Admin: 02/06/24 17:38 Dose: 650 mg Al Hydroxide/Mg Hydroxide (Magnesium Hydrox/Alum Hydrox 30 Ml Oral.Susp) 30 ml PO Q6H PRN PRN Reason: Heartburn/Nausea Amlodipine Besylate (Amlodipine Besylate 10 Mg Tablet) 10 mg PO DAILY [facility]; Protocol Last Admin: 02/08/24 09:03 Dose: 10 mg Cephalexin HCl (Cephalexin 500 Mg Capsule) 500 mg PO QID [facility] Stop: 02/13/24 08:59 Last Admin: 02/08/24 20:58 Dose: 500 mg Clonazepam (Clonazepam 0.5 Mg Tablet) 0.5 mg PO BID [facility] Last Admin: 02/08/24 20:58 Dose: 0.5 mg Colchicine (Colchicine 0.6 Mg Tablet) 0.6 mg PO DAILY [facility] Last Admin: 02/08/24 09:04 Dose: 0.6 mg Doxycycline Monohydrate (Doxycycline Monohydrate 100 Mg Capsule) 100 mg PO BID [facility] Stop: 02/12/24 21:01 Last Admin: 02/08/24 20:58 Dose: 100 mg Escitalopram Oxalate (Escitalopram Oxalate 5 Mg Tablet) 5 mg PO DAILY [facility] Last Admin: 02/08/24 09:02 Dose: 5 mg Finasteride (Finasteride 5 Mg Tablet) 5 mg PO DAILY [facility] Last Admin: 02/08/24 09:04 Dose: 5 mg Furosemide (Furosemide 20 Mg Tablet) 20 mg PO DAILY [facility]; Protocol Stop: 02/13/24 13:29 Last Admin: 02/08/24 13:57 Dose: 20 mg Hydroxyzine HCl (Hydroxyzine Hcl 50 Mg Tablet) 50 mg PO TID PRN PRN Reason: Anxiety Levothyroxine Sodium (Levothyroxine Sodium 88 Mcg Tablet) 88 mcg PO DAILY@0630 [facility] Last Admin: 02/09/24 06:22 Dose: 88 mcg Magnesium Hydroxide (Milk Of Magnesia 30 Ml Oral.Susp) 30 ml PO DAILY PRN PRN Reason: Constipation Multivitamins/Vitamin C (Multivitamin Tablet) 1 tab PO DAILY [facility] Last Admin: 02/08/24 09:02 Dose: 1 tab Nicotine (Nicotine 21 Mg Patch.Td24) 21 mg TRANSDERMA DAILY PRN PRN Reason: nicotine cravings Nicotine Polacrilex (Nicotine Polacrilex 2 Mg Gum) 4 mg BUCCAL Q2H PRN PRN Reason: Nicotine Cravings Patient Owned ( Febuxostat 40 Mg Tablet) 40 mg PO DAILY [facility] Last Admin: 02/08/24 09:04 Dose: 40 mg Risperidone (Risperidone 1 Mg Tablet) 1 mg PO BID [facility] Last Admin: 02/08/24 20:58 Dose: 1 mg Thiamine HCl (Thiamine Hcl 100 Mg Tablet) 100 mg PO DAILY [facility] Last Admin: 02/08/24 09:03 Dose: 100 mg Timolol Maleate (Timolol Maleate 0.5 % Oph Latasha 5 Ml Drbtl) 1 drop EYE-BOTH DAILY [facility] Last Admin: 02/09/24 03:11 Dose: Not Given Trazodone HCl (Trazodone Hcl 50 Mg Tablet) 50 mg PO BEDTIME MRX1 PRN PRN Reason: Insomnia Last Admin: 02/08/24 20:58 Dose: 50 mg Valsartan (Valsartan 160 Mg Tablet) 160 mg PO DAILY [facility]; Protocol Last Admin: 02/08/24 09:03 Dose: 160 mg Allergies Allergies Allergy/AdvReac Type Severity Reaction Status Date / Time meperidine [From DEMEROL] AdvReac Unknown HYPOTENSION Verified 02/05/24 10:42 allopurinol AdvReac Rash Verified 02/05/24 10:42 Assessment & Plan Assessment & Plan (1) Major depression with psychotic features: Status: Acute Code(s): F32.3 - Major depressive disorder, single episode, severe with psychotic features Plan Major Depression with Psychotic Features. hospital course: 02/07 continue current tx plan 02/08 Patient reports that he thinks he is doing better; he asks again if there is anything else he should be doing to demonstrate this. He remains slowed but in good behavioral and impulse control. Patient reports sleeping well,; taking medications. -Elevated sed rate and C-reactive protein; WBC WNL, afebrile -specifications writer covering and does not know patient well; will need to discuss further with collateral to better assess progress Plan: Collateral contacts Continue Risperdal, Klonopin Lexapro 5 mg daily Thiamine 100 mg daily (B12 287) Uric Acid, ESR, CRP Patient educated on: diagnosis and medication risk/benefits Informed Consent: understands and further education needed Reason for continued inpatient stay Substantial Risk for: rapid decompensation Time Spent With Patient Time: Total time managing care of this patient today ____ minutes.
[2024-02-09] MEDS: Doxycycline Monohydrate 100 MG CAPSULE PO ×2 (08:26→20:09)
[2024-02-09] MEDS: cephALEXin 500 MG CAPSULE PO ×4 (08:27→20:10)
[2024-02-09] MEDS: Thiamine HCL 100 MG TABLET PO (08:27)
[2024-02-09] MEDS: Multivitamin TABLET 1 TAB PO (08:27)
[2024-02-09] MEDS: Escitalopram Oxalate 5 MG TABLET PO (08:27)
[2024-02-09] MEDS: clonazePAM 0.5 MG TABLET PO ×2 (08:27→20:08)
[2024-02-09] MEDS: risperiDONE 1 MG TABLET PO ×2 (08:27→20:08)
[2024-02-09 08:29] VITALS: BP 135/72
[2024-02-09] MEDS: Valsartan 160 MG TABLET PO (08:29)
[2024-02-09 08:30] VITALS: BP 135/72
[2024-02-09] MEDS: amLODIPine Besylate 10 MG TABLET PO (08:30)
[2024-02-09 08:31] VITALS: BP 135/72
[2024-02-09] MEDS: Furosemide 20 MG TABLET PO (08:31)
[2024-02-09] MEDS: Colchicine 0.6 MG TABLET PO (08:32)
[2024-02-09] MEDS: Finasteride 5 MG TABLET PO (08:32)
[2024-02-09] MEDS: timoloL maleate 0.5 % Oph Sol 5 ML DRBTL 1 DROP EYE-BOTH (09:01)
[2024-02-09 20:00] VITALS: BP 187/96; PULSE 68; RESP 16; TEMP 36.1; O2SAT 97
[2024-02-10 01:19] VITALS: PULSE 75; RESP 17; O2SAT 96
[2024-02-10] MEDS: Levothyroxine Sodium 88 MCG TABLET PO (06:51)
[2024-02-10 07:56] VITALS: BP 160/78; PULSE 80; TEMP 36.6; O2SAT 97
[2024-02-10] MEDS: Multivitamin TABLET 1 TAB PO (08:42)
[2024-02-10] MEDS: Valsartan 160 MG TABLET PO (08:42)
[2024-02-10] MEDS: Doxycycline Monohydrate 100 MG CAPSULE PO ×2 (08:42→22:22)
[2024-02-10] MEDS: risperiDONE 1 MG TABLET PO ×2 (08:42→22:30)
[2024-02-10] MEDS: Furosemide 20 MG TABLET PO (08:42)
[2024-02-10] MEDS: Escitalopram Oxalate 5 MG TABLET PO (08:42)
[2024-02-10] MEDS: clonazePAM 0.5 MG TABLET PO ×2 (08:42→22:21)
[2024-02-10] MEDS: amLODIPine Besylate 10 MG TABLET PO (08:42)
[2024-02-10] MEDS: Thiamine HCL 100 MG TABLET PO (08:42)
[2024-02-10] MEDS: cephALEXin 500 MG CAPSULE PO ×4 (08:42→22:22)
[2024-02-10] MEDS: timoloL maleate 0.5 % Oph Sol 5 ML DRBTL 1 DROP EYE-BOTH (08:49)
[2024-02-10] MEDS: Finasteride 5 MG TABLET PO (08:52)
[2024-02-10] MEDS: Colchicine 0.6 MG TABLET PO (09:03)
--- NOTE | 2024-02-10 09:56 | P.PNPSI_ITS ---
Subjective Subjective Date of Service: 02/10/24 Reason For Visit: Psychosis Subjective Notes: Section 12B Healthcare Proxy: No Guardianship: No Medical Problems Affecting Mental Status: No Interim History: Pt reports a quiet weekend, feeling improved. Tolerating medications, regime, feeling more relaxed and less anxious. Met with pt, , Tramaine CHERRY. Review of meds, discharge planning, referrals and out pt plan of care. Questions answered. The couple plans a trip on Feb.23. Denies SI/HI/AH/VH. No sx of jessica or psychosis No current worries which are exaggerated. Expressed concerns about work that awaits him on discharge which he will have assistance with. Medication Compliance: Yes Side effects from medications: No Attending Groups: Yes Review of Systems Acute medical concerns: No Medical Review of Systems: unchanged Review of Systems Review of Systems reports legs feel better. Denies other sx of concern Mental Status Exam Mental Status Exam Patient Appearance: Appropriate Patient Orientation: Person, Place, Time and Situation Level of Consciousness: Alert Patient Behavior: Appropriate, Cooperative, Anxious and Good Eye Contact Mood Description: Apprehensive Affect Description: Apprehensive Patient Cognition Impaired: No Ability to Follow Directions: Good Speech Pattern: Spontaneous Speech Memory Description: Episodic Impaired Hallucinations: None Delusions: Not Present Thought Process: Intact and Goal Oriented Thought Content: positive for Intact, positive for Goal Oriented and positive for Suicidal Ideation (denies) Judgement: Good Diagnostics Vital Signs (24Hr): Vital Signs - 24 hr 02/09/24 20:00 02/10/24 01:19 02/10/24 07:56 Temperature 97.0 F 97.8 F Pulse Rate 68 80 Respiratory Rate 16 17 Blood Pressure 187/96 H 160/78 H Pulse Oximetry 97 97 Oxygen Delivery Method Room Air Room Air BMI result Body Mass Index 27.9 Labs 02/06/24 08:30 02/05/24 11:16 Labs: Laboratory Results - last 48 hr 02/08/24 09:07 ESR 31 H Imaging Radiology Impressions: ITS Impressions Head CT 02/05/24 10:50 IMPRESSION: No acute intracranial pathology. Chronic sinus disease Electronically signed by: Bashir Bee MD 02/05/2024 11:51 AM EDT Venous Duplex 02/06/24 10:23 IMPRESSION: No evidence of deep venous thrombosis involving the right lower extremity. Electronically signed by: Florentin Foster DO 02/06/2024 10:59 AM EDT Medications Medications Current Medications Acetaminophen (Acetaminophen 325 Mg Tablet) 650 mg PO Q6H PRN PRN Reason: Headache/Pain Mild Scale (1-3) Last Admin: 02/06/24 17:38 Dose: 650 mg Al Hydroxide/Mg Hydroxide (Magnesium Hydrox/Alum Hydrox 30 Ml Oral.Susp) 30 ml PO Q6H PRN PRN Reason: Heartburn/Nausea Amlodipine Besylate (Amlodipine Besylate 10 Mg Tablet) 10 mg PO DAILY [facility]; Protocol Last Admin: 02/10/24 08:42 Dose: 10 mg Cephalexin HCl (Cephalexin 500 Mg Capsule) 500 mg PO QID [facility] Stop: 02/13/24 08:59 Last Admin: 02/10/24 08:42 Dose: 500 mg Clonazepam (Clonazepam 0.5 Mg Tablet) 0.5 mg PO BID [facility] Last Admin: 02/10/24 08:42 Dose: 0.5 mg Colchicine (Colchicine 0.6 Mg Tablet) 0.6 mg PO DAILY [facility] Last Admin: 02/10/24 09:03 Dose: 0.6 mg Doxycycline Monohydrate (Doxycycline Monohydrate 100 Mg Capsule) 100 mg PO BID [facility] Stop: 02/12/24 21:01 Last Admin: 02/10/24 08:42 Dose: 100 mg Escitalopram Oxalate (Escitalopram Oxalate 5 Mg Tablet) 5 mg PO DAILY [facility] Last Admin: 02/10/24 08:42 Dose: 5 mg Finasteride (Finasteride 5 Mg Tablet) 5 mg PO DAILY [facility] Last Admin: 02/10/24 08:52 Dose: 5 mg Furosemide (Furosemide 20 Mg Tablet) 20 mg PO DAILY [facility]; Protocol Stop: 02/13/24 13:29 Last Admin: 02/10/24 08:42 Dose: 20 mg Hydroxyzine HCl (Hydroxyzine Hcl 50 Mg Tablet) 50 mg PO TID PRN PRN Reason: Anxiety Levothyroxine Sodium (Levothyroxine Sodium 88 Mcg Tablet) 88 mcg PO DAILY@0630 [facility] Last Admin: 02/10/24 06:51 Dose: 88 mcg Magnesium Hydroxide (Milk Of Magnesia 30 Ml Oral.Susp) 30 ml PO DAILY PRN PRN Reason: Constipation Multivitamins/Vitamin C (Multivitamin Tablet) 1 tab PO DAILY [facility] Last Admin: 02/10/24 08:42 Dose: 1 tab Nicotine (Nicotine 21 Mg Patch.Td24) 21 mg TRANSDERMA DAILY PRN PRN Reason: nicotine cravings Nicotine Polacrilex (Nicotine Polacrilex 2 Mg Gum) 4 mg BUCCAL Q2H PRN PRN Reason: Nicotine Cravings Patient Owned ( Febuxostat 40 Mg Tablet) 40 mg PO DAILY [facility] Last Admin: 02/10/24 08:49 Dose: 40 mg Risperidone (Risperidone 1 Mg Tablet) 1 mg PO BID [facility] Last Admin: 02/10/24 08:42 Dose: 1 mg Thiamine HCl (Thiamine Hcl 100 Mg Tablet) 100 mg PO DAILY [facility] Last Admin: 02/10/24 08:42 Dose: 100 mg Timolol Maleate (Timolol Maleate 0.5 % Oph Latasha 5 Ml Drbtl) 1 drop EYE-BOTH DAILY [facility] Last Admin: 02/10/24 08:49 Dose: 1 drop Trazodone HCl (Trazodone Hcl 50 Mg Tablet) 50 mg PO BEDTIME MRX1 PRN PRN Reason: Insomnia Last Admin: 02/08/24 20:58 Dose: 50 mg Valsartan (Valsartan 160 Mg Tablet) 160 mg PO DAILY [facility]; Protocol Last Admin: 02/10/24 08:42 Dose: 160 mg Allergies Allergies Allergy/AdvReac Type Severity Reaction Status Date / Time meperidine [From DEMEROL] AdvReac Unknown HYPOTENSION Verified 02/05/24 10:42 allopurinol AdvReac Rash Verified 02/05/24 10:42 Assessment & Plan Assessment & Plan (1) Major depression with psychotic features: Status: Acute Code(s): F32.3 - Major depressive disorder, single episode, severe with psychotic features Plan Major Depression with Psychotic Features. hospital course: 02/07 continue current tx plan 02/08 Patient reports that he thinks he is doing better; he asks again if there is anything else he should be doing to demonstrate this. He remains slowed but in good behavioral and impulse control. Patient reports sleeping well,; taking medications. -Elevated sed rate and C-reactive protein; WBC WNL, afebrile -quality analyst/technical writer covering and does not know patient well; will need to discuss further with collateral to better assess progress 02/09 Pt prepared for discharge. Section XIIB to 02/10. Plan: Collateral contacts Continue Risperdal, Klonopin Lexapro 5 mg daily Thiamine 100 mg daily (B12 287) Uric Acid, ESR, CRP Patient educated on: medication risk/benefits and therapeutic strategies Informed Consent: understands Reason for continued inpatient stay Substantial Risk for: stable for discharge Time Spent With Patient Time: Total time managing care of this patient today ____ minutes.
[2024-02-10 20:00] VITALS: BP 168/89; PULSE 80; RESP 16; TEMP 36.9; O2SAT 98
[2024-02-11] MEDS: Levothyroxine Sodium 88 MCG TABLET PO (06:33)
[2024-02-11] MEDS: cephALEXin 500 MG CAPSULE PO (08:18)
[2024-02-11] MEDS: risperiDONE 1 MG TABLET PO (08:18)
[2024-02-11] MEDS: Escitalopram Oxalate 5 MG TABLET PO (08:19)
[2024-02-11] MEDS: clonazePAM 0.5 MG TABLET PO (08:19)
[2024-02-11] MEDS: Multivitamin TABLET 1 TAB PO (08:20)
[2024-02-11] MEDS: Colchicine 0.6 MG TABLET PO (08:21)
[2024-02-11] MEDS: Finasteride 5 MG TABLET PO (08:21)
[2024-02-11 08:25] VITALS: BP 164/79; PULSE 78; TEMP 36.3
[2024-02-11] MEDS: Valsartan 160 MG TABLET PO (08:39)
[2024-02-11] MEDS: Doxycycline Monohydrate 100 MG CAPSULE PO (08:39)
[2024-02-11] MEDS: Thiamine HCL 100 MG TABLET PO (08:39)
[2024-02-11] MEDS: amLODIPine Besylate 10 MG TABLET PO (08:40)
[2024-02-11] MEDS: Furosemide 20 MG TABLET PO (08:40)
[2024-02-11] MEDS: timoloL maleate 0.5 % Oph Sol 5 ML DRBTL 1 DROP EYE-BOTH (08:41)
--- NOTE | 2024-02-11 11:29 | P.DS_ITS ---
DS: Providers Provider Date of Service: 02/11/24 Date of admission: 02/06/24 13:17 Date of discharge: 02/11/24 Primary care physician: Nabor Khan MD Admitting clinician: Suma Tan Attending physician on admission: Lars Rachel Consults: 02/07/24 18:12 Consult to Hospitalist Routine Comment: Consulting Provider: Hospitalist Reason For Exam: Gout, pain Attending physician on discharge: Lars Rachel Discharging clinician: Suma Tan DS: Diagnosis Discharge Diagnosis (1) Major depression with psychotic features: Status: Acute DS: Medications Discharge Medications Home Medications: Previous Rx's ?Medication ?Instructions ?Recorded amlodipine 10 mg tablet 10 mg PO DAILY #30 tabs 02/10/24 cephalexin 500 mg capsule 500 mg PO QID #11 caps 02/10/24 clonazepam 0.5 mg tablet 0.5 mg PO BID #60 tabs 02/10/24 colchicine 0.6 mg tablet 0.6 mg PO DAILY #30 tabs 02/10/24 doxycycline monohydrate 100 mg 100 mg PO BID #3 caps 02/10/24 capsule escitalopram oxalate 5 mg tablet 5 mg PO DAILY #30 tabs 02/10/24 febuxostat 40 mg tablet 40 mg PO DAILY #30 tabs 02/10/24 finasteride 5 mg tablet 5 mg PO DAILY #30 tabs 02/10/24 furosemide 20 mg tablet 20 mg PO DAILY #30 tabs 02/10/24 hydroxyzine HCl 50 mg tablet 50 mg PO TID PRN Anxiety #90 tabs 02/10/24 levothyroxine 88 mcg tablet 88 mcg PO DAILY #30 tabs 02/10/24 multivitamin (Daily-Rui tablet) 1 tab PO DAILY #30 tabs 02/10/24 risperidone 1 mg tablet 1 mg PO BID #60 tabs 02/10/24 thiamine mononitrate (vit B1) 100 100 mg PO DAILY #30 tabs 02/10/24 mg tablet timolol maleate 0.5 % eye drops 1 drp ophthalmic-Left QAM #5 mL 02/10/24 valsartan 160 mg tablet 160 mg PO DAILY #30 tabs 02/10/24 Mental Status Exam Mental Status Exam Patient Appearance: Appropriate Patient Orientation: Person, Place, Time and Situation Level of Consciousness: Alert Patient Behavior: Appropriate, Cooperative, Anxious and Good Eye Contact Mood Description: Apprehensive Affect Description: Apprehensive Patient Cognition Impaired: No Ability to Follow Directions: Good Speech Pattern: Spontaneous Speech Memory Description: Episodic Impaired Hallucinations: None Delusions: Not Present Thought Process: Intact and Goal Oriented Thought Content: positive for Intact, positive for Goal Oriented and positive for Suicidal Ideation (denies) Judgement: Good Data Data Completed and Pending Completed studies during hospitalization [Text1]: 02/05/24 02/05/24 02/06/24 11:16 13:56 08:30 WBC 16.7 H 13.5 H RBC 4.82 4.81 Hgb 14.9 15.0 Hct 43.7 43.6 MCV 90.7 90.6 MCH 30.9 31.2 MCHC 34.1 34.4 RDW 12.4 12.3 Plt Count 319 305 MPV 8.9 L 8.9 L Immature Gran % (Auto) 0.5 H 0.4 Neut % (Auto) 80.7 H 80.2 H Lymph % (Auto) 9.5 L 12.7 L [place] % (Auto) 8.3 6.1 Eos % (Auto) 0.5 0.4 Baso % (Auto) 0.5 0.2 Lymph # (Auto) 1.6 1.7 [place] # (Auto) 1.4 H 0.8 Eos # (Auto) 0.1 0.1 Baso # (Auto) 0.1 0.0 Abs Immat Gran (auto) 0.08 H 0.05 H Absolute Neuts (auto) 13.5 H 10.8 H Absolute Nucleated RBC 0.000 0.000 Nucleated RBC % (auto) 0.0 0.0 ESR Sodium 141 Potassium 4.0 Chloride 108 Carbon Dioxide 28 Anion Gap 9 L BUN 27 H Creatinine 1.06 Estim Creat Clear Calc 81.7 Estimated GFR > 60 Random Glucose 119 H Estimat Average Glucose Hemoglobin A1c % Uric Acid Calcium 10.0 Magnesium Total Bilirubin 0.5 AST 24 ALT 31 Alkaline Phosphatase 90 C-Reactive Protein Total Protein 8.0 Albumin 4.6 Triglycerides Cholesterol LDL Cholesterol, Calc HDL Cholesterol Vitamin B12 Folate TSH Free T4 Urine Color Yellow Urine Appearance Clear Urine pH 5.5 Ur Specific [place] 1.025 Urine Protein Negative Urine Glucose (UA) Negative Urine Ketones Negative Urine Blood Negative Urine Nitrite Negative Ur Leukocyte Esterase Trace H Urine RBC 0-2 Urine WBC 6-10 H Ur Squamous Epith Cells 0-2 Urine Bacteria None Seen Hyaline Casts 0-2 Urine Opiates Screen Not Detected Ur Buprenorphine Scrn Not Detected Ur Oxycodone Screen Not Detected Urine Methadone Screen Not Detected Urine Fentanyl Screen Not Detected Ur Barbiturates Screen Not Detected Ur Phencyclidine Scrn Not Detected Ur Amphetamines Screen Not Detected U Benzodiazepines Scrn Not Detected Urine Cocaine Screen Not Detected U Marijuana (THC) Screen Not Detected Ethyl Alcohol < 10 02/07/24 02/08/24 07:53 09:07 WBC RBC Hgb Hct MCV MCH MCHC RDW Plt Count MPV Immature Gran % (Auto) Neut % (Auto) Lymph % (Auto) [place] % (Auto) Eos % (Auto) Baso % (Auto) Lymph # (Auto) [place] # (Auto) Eos # (Auto) Baso # (Auto) Abs Immat Gran (auto) Absolute Neuts (auto) Absolute Nucleated RBC Nucleated RBC % (auto) ESR 31 H Sodium Potassium Chloride Carbon Dioxide Anion Gap BUN Creatinine Estim Creat Clear Calc Estimated GFR Random Glucose Estimat Average Glucose 117 Hemoglobin A1c % 5.7 Uric Acid 5.4 Calcium Magnesium 2.1 Total Bilirubin AST ALT Alkaline Phosphatase C-Reactive Protein 2.75 H Total Protein Albumin Triglycerides 126 Cholesterol 186 LDL Cholesterol, Calc 92 HDL Cholesterol 69 Vitamin B12 287 Folate 11.9 TSH 2.50 Free T4 1.18 Urine Color Urine Appearance Urine pH Ur Specific [place] Urine Protein Urine Glucose (UA) Urine Ketones Urine Blood Urine Nitrite Ur Leukocyte Esterase Urine RBC Urine WBC Ur Squamous Epith Cells Urine Bacteria Hyaline Casts Urine Opiates Screen Ur Buprenorphine Scrn Ur Oxycodone Screen Urine Methadone Screen Urine Fentanyl Screen Ur Barbiturates Screen Ur Phencyclidine Scrn Ur Amphetamines Screen U Benzodiazepines Scrn Urine Cocaine Screen U Marijuana (THC) Screen Ethyl Alcohol 02/05/24 Unknown Urine Catheterized - Straight Catheter Urine Culture - Final No growth. Imaging Diagnostic Imaging Impressions Head CT 02/05/24 10:50 IMPRESSION: No acute intracranial pathology. Chronic sinus disease Electronically signed by: Bashir Bee MD 02/05/2024 11:51 AM EDT Venous Duplex 02/06/24 10:23 IMPRESSION: No evidence of deep venous thrombosis involving the right lower extremity. 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 Symptoms were disabling for pt. Paranoia and delusions were present and effected family and pt's ability to live without fear. Medications were initiated, tolerated, and found to be effective. Family was very present and supportive of pt. Pt participated in the milieu and discharges to out patient care improved and without active sx. Status at Discharge Functional status at discharge: independent ambulation Overall status at discharge: patient is progressing back to baseline Time Spent with Patient Time attestation: Total time managing care of this patient today ____ minutes. Time spent: Less than 30 minutes Discharge Plan Discharge Anticipated Discharge Date/Time: 02/11/24 12:00 Patient Disposition: Home, Self-Care Discharge Diagnosis: Major Depression with Psychotic Features Cellulitis Referrals: Nabor Khan MD [Primary Care Provider] - 1 Week ( WILL CALL PATIENT WITH FOLLOW-UP APPOINTMENT.) Discharge Medications: New cephalexin 500 mg Capsule 500 mg PO QID Qty: 11 0RF doxycycline monohydrate 100 mg Capsule 100 mg PO BID Qty: 3 0RF clonazepam 0.5 mg Tablet 0.5 mg PO BID Qty: 60 0RF escitalopram oxalate 5 mg Tablet 5 mg PO DAILY Qty: 30 0RF hydroxyzine HCl 50 mg Tablet 50 mg PO TID PRN (Reason: Anxiety) Qty: 90 0RF risperidone 1 mg Tablet 1 mg PO BID Qty: 60 0RF furosemide 20 mg Tablet 20 mg PO DAILY Qty: 30 0RF Protocol: Hold for SBP< HOLD for SBP < : 90 multivitamin [Daily-Rui] Tablet 1 tab PO DAILY Qty: 30 0RF thiamine mononitrate (vit B1) 100 mg Tablet 100 mg PO DAILY Qty: 30 0RF Continued levothyroxine 88 mcg tablet 88 mcg PO DAILY Qty: 30 0RF amlodipine 10 mg tablet 10 mg PO DAILY Qty: 30 0RF colchicine 0.6 mg tablet 0.6 mg PO DAILY Qty: 30 0RF finasteride 5 mg tablet 5 mg PO DAILY Qty: 30 0RF valsartan 160 mg tablet 160 mg PO DAILY Qty: 30 0RF febuxostat 40 mg tablet 40 mg PO DAILY Qty: 30 0RF Changed timolol maleate 0.5 % drops 1 drp ophthalmic-Left QAM Qty: 5 0RF Discontinued hydroxyzine pamoate 25 mg capsule 25 - 50 mg PO QD-TID PRN (Reason: Anxiety) Discharge Orders: Discharge Order (Routine); Ordered 02/11/24 Ordered By: Suma Tan Diet: Advance to usual diet Activity on Discharge: As tolerated Stand Alone Forms: Patient Portal Discharge page, Community Support Print Language: Romansh Care Plan Goals: Mood and Behavioral Stabilization Health Concerns: Mood and Behavioral Stabilization Plan of Treatment: Attend scheduled appointments Take medications as directed Call/Return as needed. Assessment: No SI,HI, AH,VH, sx of psychosis or jessica Pt and family agreed he is prepared for discharge. Pt and family are planning a vacation for 02/23/24. Discharge Date/Time: 02/11/24 11:35
== END 2024-02-11 11:35 | disposition home or self-care (01) | DRG 751 ==
LOC: HO.ED 16:53 → HO.PM5 02-06 13:40
PROVIDERS: Registered Nurse Emergency; Admitting Provider Clinical Nurse Specialist Psychiatric/Mental Health, Adult; Emergency Provider Emergency Medicine; PCP Family Medicine; Visit Provider Clinical Nurse Specialist Psychiatric/Mental Health, Adult
DX: F32.3 Major depressive disorder, single episode, severe with psychotic features (principal); L03.115 Cellulitis of right lower limb; M10.9 Gout, unspecified; E03.9 Hypothyroidism, unspecified; Z79.890 Hormone replacement therapy; Z79.899 Other long term (current) drug therapy
CPT/HCPCS: 36415; 70450; 80053; 80061; 80307; 81001; 82607; 82746; 83036; 83735; 84439; 84443; 84550; 85025; 85652; 86140; 87086; 93005; 93971; 94660; 99285; S9485

== ENCOUNTER 2024-09-22 13:45 | Outpatient (AMB) | payer BC, SELFPAY ==
--- NOTE | 2024-09-22 13:55 | A.OFFVIS_ITS ---
Intake Visit Reasons: 1y follow up Intake Note: Patient is Present for 1Y Follow Up Urology Med: Finasteride, VITAMIN B1 Antibiotic Allergy:None Blood Thinner: None Focusing Machine Operator Required: No Allergies meperidine [From DEMEROL] Adverse Reaction (Unknown, Verified 09/22/24 13:56) HYPOTENSION allopurinol Adverse Reaction (Verified 09/22/24 13:56) Rash HPI Comments Details: Dillon is a pleasant male. He is a patient of Dr Khan. He is seen for the following urologic conditions - Elevated PSA - erectile dysfunction - neurogenic bladder - ongoing care for chronic complex condition Yearly review Continue stability with finasteride every other day = slight PSA rise but was expected PSA remains under 2 Continues with three times a day catheterizing - expected to continue for the foreseeable future Has been placed on SSRI with libido impact. Trial 5 mg daily tadalafil. Elevated PSA Here for current review Long running elevated PSA - highly variable between 1.5 and 5.5 Prior biopsy negative Family history prostate cancer PSA - 04/07 11.5, 11/06 1.5, 09/07 5.6, 02/07 3.5/5.9, 09/08 3.5, 03/10 1.4, 03/11 1.6, 09/10 1.9 Erectile dysfunction Good response to tadalafil 20 mg as needed Lower urinary tract symptoms Has been on alpha-duyen Uses self catheterization for retention - BID Occasional bladder activity PFSH Medical History Erectile dysfunction BPH with obstruction/lower urinary tract symptoms Urine retention Hypotonic bladder Family history of prostate cancer Elevated PSA Surgical History History of surgery Social History Household Members: Spouse Housing: House Do you presently have visiting nurse or other home services: No Patient Tobacco Use Status: Never used Tobacco e-Cigarette/Vaping Use: Never Used Second Hand Smoke Exposure: No service: No Current occupational status: employed 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 Sexual orientation: Straight/Heterosexual Review of Systems Const Denies chills and Denies fever(s) Card Reports no additional complaints and Denies syncope Resp Denies cough GI Denies abdominal pain and Denies heartburn Reports as per HPI and Denies change in libido Neuro Denies syncope Psych Denies change in libido Endo Denies change in libido Physical Exam Const General: cooperative, healthy appearing, comfortable and no acute distress Orientation/consciousness: patient oriented x3 HEENT Face and sinus: Yes normal facial exam Mouth: moist mucous membranes Neck Neck: Yes normal visual inspection, Yes full ROM and Yes trachea midline Chest Chest palpation & inspection: normal inspection of the chest Resp Effort & Inspection: normal respiratory effort, able to speak in complete sentences and no respiratory distress GI Inspection: Yes normal to inspection Back/Spine/Pelvis Cervical Spine: normal cervical lordosis Thoracic/Lumbar Spine: thoracic and lumbar spine normal to inspection Skin General skin exam: no rashes or lesions noted Neuro General: patient oriented x3, gait normal, tone normal and moves all extremities Extrem General: Yes normal to inspection and Yes capillary refill normal Results AMB Urinalysis, Automated UA Leukoctes 15 Rossi/uL Last Edit by STAS Osborne on 09/22/24 14:11 UA Nitrite Positive Last Edit by STAS Osborne on 09/22/24 14:11 UA Urobilinogen 0.2 mg/dL Last Edit by STAS Osborne on 09/22/24 14:1 1 UA Protein 0 mg/dL Last Edit by STAS Osborne on 09/22/24 14:11 UA pH 6.0 Last Edit by STAS Osborne on 09/22/24 14:11 UA Blood 25 Ashvin/uL Last Edit by STAS Osborne on 09/22/24 14:11 UA Specific [place] 1.020 Last Edit by STAS Osborne on 09/22/24 14: 11 UA Ketone Negative Last Edit by STAS Osborne on 09/22/24 14:11 UA Bilirubin 0 mg/dL Last Edit by STAS Osborne on 09/22/24 14:11 UA Glucose 0 mg/dL Last Edit by STAS Osborne on 09/22/24 14:11 Assessment & Plan Assessment & Plan (1) Hypotonic bladder: Code(s): 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 Trial 5 mg daily tadalafil Orders: Orders AMB Urinalysis Automated Today Z13.9 - Encounter for screening, unspecified Medications: New tadalafil [id number] [facility] [id number] Member [id number] 5 mg PO DAILY 90 days 90 tabs 0RF sexual activity N52.9 - Male erectile dysfunction, unspecified Patient Instructions: This note is constructed using voice recognition software. While every effort has been made to ensure accuracy food handler errors may have been included. Imaging studies, laboratory and physical exam results were discussed and reviewed in detail. No major barriers to patient understanding were identified. An opportunity to ask questions regarding the treatment plan was provided. All questions were answered. The patient expressed understanding and agreement with the above treatment plan. The patient is aware they should contact our office by phone for worsening of their current condition or the appearance of new urologic symptoms. Compliance is encouraged with any medications and followup testing that is ordered. It is a privilege to participate in the urologic care of your patient. If you have any questions or concerns regarding treatment for the above conditions, or other urologic issues, please do not hesitate to contact me. The office telephone contact is [phone]. Sincerely, Dr Jitendra Gipson MD, [facility] - Urology Compassionate Specialist Care for the Genitourinary System Coding Level of Care Code Est Pt Level 4 (75586) Diagnoses Hypotonic bladder N31.2 BPH with obstruction/lower urinary tract symptoms N40.1; N13.8 Erectile dysfunction, unspecified erectile dysfunction type N52.9 Erectile dysfunction type: unspecified
== END 2024-09-22 14:16 | disposition home or self-care (01) ==
LOC: HO.HUSH 13:45
PROVIDERS: PCP Family Medicine; Visit Provider Urology
DX: N31.2 Flaccid neuropathic bladder, not elsewhere classified (principal); N40.1 Benign prostatic hyperplasia with lower urinary tract symptoms; N13.8 Other obstructive and reflux uropathy; N52.9 Male erectile dysfunction, unspecified; Z13.9 Encounter for screening, unspecified
CPT/HCPCS: 99214

== ENCOUNTER → 2024-09-22 13:45 | Outpatient (BNVA) | payer BC, SELFPAY | PROVIDERS: PCP Family Medicine; Visit Provider Urology | DX: N40.1 Benign prostatic hyperplasia with lower urinary tract symptoms (principal); N52.9 Male erectile dysfunction, unspecified; N31.2 Flaccid neuropathic bladder, not elsewhere classified; N13.8 Other obstructive and reflux uropathy | CPT/HCPCS: 81003 ==

== ENCOUNTER 2024-12-23 14:21 | Outpatient (AMB) | payer BC, SELFPAY ==
--- NOTE | 2024-12-23 14:20 | MHC.OFFVIS ---
Intake Visit Reasons: 3m follow up Intake Note: Patient is Present for 3 MO Follow Up Urology Med: Finasteride, VITAMIN B1,Tadalafil PVR:4 mls Antibiotic Allergy:None Blood Thinner: None Nurse Advocate Required: No Accompanied by: Self / Same As Patient Allergies meperidine (From DEMEROL) Adverse Reaction (Unknown, Verified 12/23/24 14:21) HYPOTENSION allopurinol Adverse Reaction (Verified 12/23/24 14:21) Rash HPI Comments Details: Dillon is a pleasant male. He is a patient of Dr Khan. He is seen for the following urologic conditions - Elevated PSA - erectile dysfunction - neurogenic bladder - ongoing care for chronic complex condition Continue stability with finasteride every other day = slight PSA rise but was expected PSA remains under 2 Continues with three times a day catheterizing - expected to continue for the foreseeable future On UA has asymptomatic contamination Three-month follow-up trial daily 5 mg tadalafil Effective. Would like to continue. Prescription provided. Twelve month follow-up. Elevated PSA Here for current review Long running elevated PSA - highly variable between 1.5 and 5.5 Prior biopsy negative Family history prostate cancer PSA - 04/07 11.5, 11/06 1.5, 09/07 5.6, 02/07 3.5/5.9, 09/08 3.5, 03/10 1.4, 03/11 1.6, 09/10 1.9 Erectile dysfunction Good response to tadalafil 20 mg as needed Lower urinary tract symptoms Has been on alpha-duyen Uses self catheterization for retention - BID Occasional bladder activity PFSH Medical History Erectile dysfunction BPH with obstruction/lower urinary tract symptoms Urine retention Hypotonic bladder Family history of prostate cancer Elevated PSA Surgical History History of surgery Social History Household Members: Spouse Housing: House Do you presently have visiting nurse or other home services: No Patient Tobacco Use Status: Never used Tobacco e-Cigarette/Vaping Use: Never Used Second Hand Smoke Exposure: No service: No Current occupational status: employed 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 Sexual orientation: Straight/Heterosexual Review of Systems Const Denies chills and Denies fever(s) Card Reports no additional complaints and Denies syncope Resp Denies cough GI Denies abdominal pain and Denies heartburn Reports as per HPI and Denies change in libido Neuro Denies syncope Psych Denies change in libido Endo Denies change in libido Physical Exam Const General: cooperative, healthy appearing, comfortable and no acute distress Orientation/consciousness: patient oriented x3 HEENT Face and sinus: Yes normal facial exam Mouth: moist mucous membranes Neck Neck: Yes normal visual inspection, Yes full ROM and Yes trachea midline Chest Chest palpation & inspection: normal inspection of the chest Resp Effort & Inspection: normal respiratory effort, able to speak in complete sentences and no respiratory distress GI Inspection: Yes normal to inspection Back/Spine/Pelvis Cervical Spine: normal cervical lordosis Thoracic/Lumbar Spine: thoracic and lumbar spine normal to inspection Skin General skin exam: no rashes or lesions noted Neuro General: patient oriented x3, gait normal, tone normal and moves all extremities Extrem General: Yes normal to inspection and Yes capillary refill normal Assessment & Plan Assessment & Plan (1) Hypotonic bladder: Code(s): 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 Urinary Tract Infection (Uti) - Monitor UTI symptoms. - Consider Vitamin C. 2. Catheterization-Related Urinary Changes - Continue self-catheterization. - Follow-up in 12 months. 3. Bladder Spasms - Continue Tadalafil. Discussion Notes I discussed with the patient the importance of monitoring for urinary tract infection symptoms due to catheterization. We talked about the potential benefits of high-dose Vitamin C for urinary health. The patient agreed to continue self-catheterization three times daily and to use Tadalafil to manage bladder spasms. We planned a follow-up visit in 12 months to reassess his condition and adjust the treatment plan as necessary. Patient Instructions - Monitor for any signs of urinary tract infection. - Continue taking high-dose Vitamin C as discussed. - Perform self-catheterization three times daily. - Continue Tadalafil for bladder spasms. - Schedule a follow-up appointment in 12 months. Orders: Orders Prostate Specific Antigen 12 Months N13.8 - Other obstructive and reflux uropathy, N40.1 - Benign prostatic hyperplasia with lower urinary tract symptoms Medications: Refilled tadalafil [id number] [facility] [place] [id number] Member [id number] 5 mg PO DAILY 90 tabs 3RF sexual activity 90 days N52.9 - Male erectile dysfunction, unspecified Patient Instructions: This note is constructed using voice recognition software. While every effort has been made to ensure accuracy senior qa automation engineer errors may have been included. Imaging studies, laboratory and physical exam results were discussed and reviewed in detail. No major barriers to patient understanding were identified. An opportunity to ask questions regarding the treatment plan was provided. All questions were answered. The patient expressed understanding and agreement with the above treatment plan. The patient is aware they should contact our office by phone for worsening of their current condition or the appearance of new urologic symptoms. Compliance is encouraged with any medications and followup testing that is ordered. It is a privilege to participate in the urologic care of your patient. If you have any questions or concerns regarding treatment for the above conditions, or other urologic issues, please do not hesitate to contact me. The office telephone contact is [phone]. Sincerely, Dr Jtiendra Gipson MD, [facility] - Urology Compassionate Specialist Care for the Genitourinary System Coding Level of Care Code Est Pt Level 3 (86653) Complex EM visit Add On G2211 Diagnoses Hypotonic bladder N31.2 Erectile dysfunction, unspecified erectile dysfunction type N52.9 Erectile dysfunction type: unspecified
== END 2024-12-23 14:46 | disposition home or self-care (01) ==
PROVIDERS: PCP Family Medicine; Visit Provider Urology
DX: N31.2 Flaccid neuropathic bladder, not elsewhere classified (principal); R33.9 Retention of urine, unspecified; N40.1 Benign prostatic hyperplasia with lower urinary tract symptoms; N13.8 Other obstructive and reflux uropathy; N52.9 Male erectile dysfunction, unspecified
CPT/HCPCS: 99213

== ENCOUNTER → 2024-12-23 14:21 | Outpatient (BNVA) | payer BC, SELFPAY | PROVIDERS: PCP Family Medicine; Visit Provider Urology | DX: N40.1 Benign prostatic hyperplasia with lower urinary tract symptoms (principal); N13.8 Other obstructive and reflux uropathy; N31.2 Flaccid neuropathic bladder, not elsewhere classified; R33.9 Retention of urine, unspecified; R97.20 Elevated prostate specific antigen [PSA]; N52.9 Male erectile dysfunction, unspecified; N31.9 Neuromuscular dysfunction of bladder, unspecified | CPT/HCPCS: 51798; 81003 ==